=== PATIENT | female | born 1990 | race Caucasian/White ===

== ENCOUNTER 2017-11-26 12:13 | Emergency (ER) | payer OTHER ==
[~2017-11-26] VITALS: Ht 160 cm; Wt 108.9 kg
[2017-11-26] MEDS ORDERED: TRIAMCINOLONE A15 G4 TP (14:07)
[2017-11-26] MEDS ORDERED: PREDNISONE20 MG PO (14:07)
== END 2017-11-26 14:15 | disposition home or self-care (01) ==
LOC: FSED 12:13
DX: L25.5 Unspecified contact dermatitis due to plants, except food (principal); F84.5 Asperger's syndrome
CPT/HCPCS: 99282